=== PATIENT | female | born 1960 | race Caucasian/White ===

== ENCOUNTER → 2019-12-21 09:19 | Outpatient (BNVA) | payer BC, SELFPAY | PROVIDERS: Family Provider Family Medicine; PCP Family Medicine; Visit Provider Family Medicine | DX: E78.5 Hyperlipidemia, unspecified (principal); E55.9 Vitamin D deficiency, unspecified; Z12.31 Encounter for screening mammogram for malignant neoplasm of breast; Z01.419 Encounter for gynecological examination (general) (routine) without abnormal findings | CPT/HCPCS: 80053; 80061; 82306; 85025 ==

== ENCOUNTER 2020-05-10 08:39 | Outpatient (CLI) | payer BC, SELFPAY ==
--- NOTE | 2020-05-10 09:00 | MM_ITS ---
WS: [id number] Bilateral screening digital mammogram, 05/10/2020 Clinical Data: screening mammo Comparison: 05/08/2019, 04/21/2018, 04/04/2018, 03/15/2017, 03/14/2016, 03/09/2015, 03/02/2014, 05/02/20 13, 13/11/2012, 02/04/2012, 08/07/2011, 01/19/2011. Findings: The breast parenchymal pattern shows heterogeneous density No spiculated masses or clustered calcific ations are seen. There are no secondary signs of carcinoma. MM/[id number] Impression: 1. Negative bilateral mammogram unchanged. 2. Recommend annual screening mammograms. BIRADS: 1-Negative FOLLOW UP: 1 Year Follow-up The CAD bakery products checker was used.
== END 2020-05-10 08:40 | disposition home or self-care (01) ==
LOC: RADSHAW 08:42
PROVIDERS: Family Provider Family Medicine; PCP Family Medicine; Visit Provider Family Medicine
DX: Z12.31 Encounter for screening mammogram for malignant neoplasm of breast (principal)
CPT/HCPCS: 77067

== ENCOUNTER → 2020-09-12 09:27 | Outpatient (BNVA) | payer BC, SELFPAY | PROVIDERS: Family Provider Family Medicine; PCP Family Medicine; Visit Provider Family Medicine | DX: E78.5 Hyperlipidemia, unspecified (principal); F41.9 Anxiety disorder, unspecified; F32.9 Major depressive disorder, single episode, unspecified | CPT/HCPCS: 80053; 80061; 85025 ==

== ENCOUNTER → 2021-02-10 10:23 | Outpatient (BNVA) | payer BC, SELFPAY | PROVIDERS: Family Provider Family Medicine; PCP Family Medicine; Visit Provider Family Medicine | DX: E78.5 Hyperlipidemia, unspecified (principal); N63.20 Unspecified lump in the left breast, unspecified quadrant; F41.9 Anxiety disorder, unspecified | CPT/HCPCS: 80053; 80061; 85025 ==

== ENCOUNTER 2021-05-12 09:16 | Outpatient (CLI) | payer BC, SELFPAY ==
--- NOTE | 2021-05-12 09:24 | MM_ITS ---
WS: [id number] Bilateral diagnostic digital mammogram, 05/12/2021 Clinical Data: abnormal mammo Comparison: 05/10/2020, 05/08/2019, 04/21/2018, 04/04/2018, 03/15/2017, 03/14/2016, 03/09/2015, 014, 03/02/2013, 08/19/2012, 02/04/2012, 08/07/2011, 01/19/2011. Findings: The breast parenchymal pattern shows heterogeneous density. There is a marker in the inferior aspect of the left breast at 6:00 marking the location of pain perceived only on palpation. There are no clu stered calcifications or spiculated masses. There are no secondary signs of carcinoma. MM/[id number] Impression: 1. Negative bilateral mammograms unchanged. 2. No mass or calcifications noted at the 6:00 position of the inferior left br east. 3. Left breast ultrasound will be performed. BIRADS: 1-Negative FOLLOW UP: See Report The CAD tool checker was used.
--- NOTE | 2021-05-12 09:24 | US_ITS ---
WS: [id number] Left breast ultrasound, 05/12/2021 Clinical Data: abnormal mammo Comparison: Bilateral breast ultrasound, 08/19/2012. Findings: 3 cm from the nipple at the 6:00 position of left breast there are no cysts or masses. Only normal br east tissue is seen. US/US breast LT limited* [id number] Impression: 1. Negative left breast ultrasound. 2. Recommend annual screening mammograms and clinical evaluation of the left br east BIRADS: 1-Negative FOLLOW UP: See Report
== END 2021-05-12 09:17 | disposition home or self-care (01) ==
LOC: RADSHAW 09:21
PROVIDERS: PCP Family Medicine; Visit Provider Family Medicine
DX: R92.8 Other abnormal and inconclusive findings on diagnostic imaging of breast (principal)
CPT/HCPCS: 76642; 77066

== ENCOUNTER → 2021-11-29 09:49 | Outpatient (BNVA) | payer BC, SELFPAY | PROVIDERS: PCP Family Medicine; Visit Provider Family Medicine | DX: F41.9 Anxiety disorder, unspecified (principal); E78.5 Hyperlipidemia, unspecified; F32.9 Major depressive disorder, single episode, unspecified | CPT/HCPCS: 80053 ==

== ENCOUNTER 2022-02-02 22:30 | Emergency (ER) | payer BC, SELFPAY ==
[2022-02-02 22:34] VITALS: BP 175/103; PULSE 113; RESP 95; TEMP 36.6; O2SAT 95; BMI 23.6
--- NOTE | 2022-02-02 22:42 | ECG_ITS ---
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 Measurements Intervals [place] Rate: 114 P: 64 WI: 143 QRS: 73 QRSD: 82 T: 43 QT: 286 QTc: 394 Interpretive Statements SINUS TACHYCARDIA POSSIBLE LEFT ATRIAL ENLARGEMENT [-0.1mV P-WAVE IN V1/V2] POSSIBLE RIGHT VENTRICULAR CONDUCTION DELAY [RSR (QR) IN V1/V2] NONSPECIFIC ST & T-WAVE ABNORMALITY No previous ECG available for comparison Electronically Signed On 02-04-2022 13:22:34 CDT by Enoc Robles M.D. [email or web address] [id number] f
--- NOTE | 2022-02-03 00:22 | ECG_ITS ---
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 Measurements Intervals [place] Rate: 84 P: 56 MT: 153 QRS: 73 QRSD: 80 T: 64 QT: 366 QTc: 434 Interpretive Statements SINUS RHYTHM Compared to ECG 02/02/2022 22:43:19 Sinus tachycardia no longer present T-wave abnormality no longer present Electronically Signed On 02-04-2022 13:22:02 CDT by Enoc Robles M.D. [id number]
--- NOTE | 2022-02-03 00:22 | W.ED.GENADLT ---
HPI - General Adult General: Chief complaint: General Medical Stated complaint: med reaction Time Seen by Provider: 02/03/22 00:08 History of Present Illness: Patient is a 61-year-old female comes to the ED with reaction medication. Patient was seen by PCP earlier today and sent home with a prescription for an antibiotic and steroid. Patient is currently taking Bactrim and prednisone and she says she has never taken either of those medications before in the past. Tonight she went to lay down and felt very jittery and had trouble sleeping. Her extremities were shaking. Endorses a headache. Denies any chest pain, seizure activity, loss of consciousness, nausea or vomiting. Associated symptoms: Reports headache(s); Deny chest pain, dyspnea, nausea, rash, palpitations or vomiting Review of Systems Const: Reports: change in sleep pattern (Trouble sleeping); Denies: fever(s), chills or fatigue Eyes: Denies: change in vision or eye discomfort ENMT: Denies: throat pain, odynophagia, nasal discharge or nasal congestion Card: Denies: chest pain, palpitations, edema, swelling of feet/ankles, dyspnea on exertion or orthopnea Resp: Denies: dyspnea, productive cough or non-productive cough GI: Denies: abdominal pain, nausea, vomiting, diarrhea, constipation or hematochezia : Denies: flank pain, dysuria or hematuria Musc: Denies: neck pain, back pain or extremity swelling Skin/Breast: Denies: rash or new lesions Neuro: Reports: headache(s); Denies: numbness in extremities or weakness in extremities [facility] ED PFSH: Medical History Allergic rhinitis Anxiety and depression Hyperlipidemia, mild Iron deficiency Vitamin D deficiency Surgical History H/O lumpectomy Right breast - benign Family History Other CAD (coronary artery disease) Cancer Multiple sclerosis Social History Smoking and tobacco status: former smoker Quit status (tobacco): has quit using tobacco Year quit tobacco: 2014 Former quit date comment: 2 PPD FOR 30 YEARS Alcohol intake: never Physical Exam Const: COMMON NORMALS: no acute distress, patient oriented x3, healthy appearing and alert GENERAL APPEARANCE: cooperative and comfortable HENMT: COMMON NORMALS: normocephalic HEAD & SCALP: normocephalic MOUTH: Normal oral and palatal mucosa present THROAT: posterior oropharynx normal and uvula midline Neck/C-Spine: COMMON NORMALS: supple GENERAL: Yes normal visual inspection Resp: COMMON NORMALS: normal respiratory effort, No retractions, No use of accessory muscles and clear to auscultation bilaterally AUSCULTATION: clear to auscultation bilaterally Cardio: COMMON NORMALS: regular rate, regular rhythm, S1 normal heart sound present, S2 normal heart sound present, No gallops present (Cardio), No clicks present (Cardio), No murmurs present (Cardio) and Peripheral pulses 2+ throughout RATE: regular rate RHYTHM: regular rhythm HEART SOUNDS: S1 normal heart sound present and S2 normal heart sound present PERIPHERAL PULSES: Peripheral pulses 2+ throughout GI: COMMON NORMALS: Normal to inspection, nondistended, normoactive bowel sounds present, Soft to palpation, non-tender and no masses PALPATION: Yes Soft to palpation : COMMON NORMALS: Yes no CVA tenderness BLADDER/KIDNEY EXAM: Yes no CVA tenderness Back/Pelvis: COMMON NORMALS: no CVA tenderness Extremity: COMMON NORMALS: normal to inspection Neuro: COMMON NORMALS: patient oriented x3 SENSORIUM/ORIENTATION: Yes alert GAIT: Yes Normal gait present Skin: GENERAL SKIN EXAM: dry skin Course Vital Signs: Vital signs: Vital Signs Temperature 97.9 F 02/02/22 22:34 Pulse Rate 89 02/03/22 01:05 Respiratory Rate 95 H 02/02/22 22:34 Blood Pressure 148/98 02/03/22 01:05 Pulse Oximetry 98 02/03/22 01:05 Oxygen Delivery Me thod 02/02/22 22:34 [facility] - General Adult Medical Decision Making Patient is a 61-year-old female comes to the ED with reaction medication. Patient started taking prednisone today and tonight she felt anxious, shaky and had trouble sleeping. She was taking a steroid and antibiotic for acute sinusitis. Symptoms are likely side effect of prednisone. Denies any chest pain or shortness of breath. Vitals are stable. Exam of patient is benign and she appears in no acute distress or pain. EKG showed normal sinus rhythm with no ST segment elevation or depression seen. Patient was told to stop taking the prednisone and to continue taking her Bactrim. She was told if she still has symptoms after stopping her prednisone she can stop taking her Bactrim and take the cephalexin I am sending her home with. Follow-up with PCP in the next week for reevaluation. Return ED precautions given. Patient understood agree with plan. EKG Data EKG 1: EKG interpretation date: 02/03/22 Interpretation: Sinus rhythm, 84 bpm, no ST segment elevation or depression seen. Discharge Plan Discharge Patient Disposition: Home Clinical Impression: Medication side effect Condition: Stable Prescriptions: New cephalexin 500 mg capsule 500 mg PO Q6H 7 Days Qty: 28 0RF No Action mecobalamin (vitamin B12) 1,000 mcg tablet,disintegrating 1,000 mcg SUBLINGUAL DAILY ferrous gluconate [Fergon] 240 mg (27 mg iron) tablet 240 mg PO DAILY cholecalciferol (vitamin D3) 3,000 unit tablet 3,000 unit PO DAILY elderberry fruit 200 mg capsule PO zinc 50 mg tablet 50 mg PO DAILY omega-3 fatty acids [Fish Oil Concentrate] 1,000 mg capsule 1,000 mg PO DAILY sulfamethoxazole-trimethoprim [Bactrim DS] 800-160 mg tablet 1 tab PO BID Qty: 14 0RF Mucinex 1,200 mg tablet extended release 12hr 1,200 mg PO BID Qty: 14 0RF prednisone 20 mg tablet 40 mg PO ONCE Qty: 10 0RF Rx Instructions: Take 2 in AM with food alprazolam [Xanax] 0.25 mg tablet 0.25 mg PO TID PRN (Reason: anxiety) Qty: 10 0RF Zyrtec 10 mg capsule 10 mg PO DAILY Qty: 90 1RF atorvastatin 10 mg tablet 10 mg PO DAILY 90 Days Qty: 90 1RF Discharge Orders: Discharge ED (Routine); Ordered 02/03/22 Ordered By: Venkat Norris Referrals: Heaven Duggan DO [Primary Care Provider] - Discharge Diet: Regular Discharge Activity: Resume usual activity Activity Restrictions/Additional Instructions: Follow-up with medical provider as directed in the next 5 to 7 days for reevaluation. stop taking the prednisone due to the side effects. Continue taking your previously prescribed antibiotic and if you continue to have symptoms you can stop taking that and fill the prescription for the antibiotic I am sending home with you tonight. Return to the ER or your medical provider if condition worsens. Please read and understand discharge instructions. Thank you for choosing [facility] for your healthcare needs today. Please realize this is an emergency room and that we are providing you with a medical screening exam and this may not be complete and all inclusive of all the testing and or work up that you may need to determine your ailment or severity of your illness. It is very important that you follow up as instructed or that you return to the Emergency Department should you have concerns or if your condition changes or worsens in any way. 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
[2022-02-03] MEDS: ketorolac 30 mg/mL INJ IM (00:34)
[2022-02-03 01:05] VITALS: BP 148/98; PULSE 89; O2SAT 98
== END 2022-02-03 01:09 | disposition home or self-care (01) ==
PROVIDERS: Emergency Provider Physician Assistant; PCP Family Medicine
DX: T88.7XXA Unspecified adverse effect of drug or medicament, initial encounter (principal); T50.905A Adverse effect of unspecified drugs, medicaments and biological substances, initial encounter; E78.5 Hyperlipidemia, unspecified; Z87.891 Personal history of nicotine dependence
CPT/HCPCS: 93005; 96372; 99284; J1885

== ENCOUNTER → 2022-05-01 14:19 | Outpatient (BNVA) | payer BC, SELFPAY | PROVIDERS: PCP Family Medicine; Visit Provider Family Medicine | DX: Z01.419 Encounter for gynecological examination (general) (routine) without abnormal findings (principal); F41.9 Anxiety disorder, unspecified; F32.9 Major depressive disorder, single episode, unspecified | CPT/HCPCS: 88175 ==

== ENCOUNTER 2022-05-14 10:11 | Outpatient (CLI) | payer BC, SELFPAY ==
--- NOTE | 2022-05-14 10:21 | MM_ITS ---
WS: [id number] BILATERAL SCREENING DIGITAL TOMOSYNTHESIS MAMMOGRAM WITH CAD HISTORY: SCREENING COMPARISON: 05/12/2021, 05/10/2020, 05/08/2019 Bilateral CC and MLO views with tomosynthesis and synthetic mammography submitted. Computer aided det ection analyzed. Breast composition: There are scattered areas of fibroglandular density. No suspicious masses, microc alcifications or architectural distortion. Benign calcifications in each breast. MM/[place] [id number] IMPRESSION: BI-RADS: 2-Benign FOLLOW UP: 1 Year Follow-up
== END 2022-05-14 10:12 | disposition home or self-care (01) ==
PROVIDERS: PCP Family Medicine; Visit Provider Family Medicine
DX: Z12.31 Encounter for screening mammogram for malignant neoplasm of breast (principal)
CPT/HCPCS: 77063; 77067

== ENCOUNTER 2022-07-17 10:46 | Outpatient (CLI) | payer BC, SELFPAY ==
--- NOTE | 2022-07-17 11:00 | USCV_ITS ---
Shelly Shepherd Age: 62 Gender: F : 1960 Exam Date: 07/17/2022 11:31 Ordering Phys: Heaven Duggan DO Technologist: KIRBY [place] [facility] [place]ication: SYNCOPE BP: 117 / 68 HR: 83 Rhythm: Sinus Technical Quality: Adequate MEASUREMENTS (Male / Female) Normal Values 2D ECHO LVOT Diameter 2.0 cm LV Ejection Fraction MOD 2C 65.7 % LV Ejection Fraction 2C AL 68.0 % LA Diameter 2.1 cm LA Width 2.3 cm LA Height 3.7 cm RA Width 1.8 cm RA Height 3.5 cm Aorta at Sinotubular Diameter 2.1 cm IVC Diameter 1.2 cm M-MODE Aortic Annulus Diameter 2.7 cm LA Ao Ratio MM 0.7 MV E Point Septal Separation 0.3 cm DOPPLER AV Peak Velocity 126.0 cm/s LVOT Peak Velocity 96.0 cm/s AV Area Cont Eq vti 2.6 cm squared AV Area Cont Eq pk 2.5 cm squared MV Peak Velocity 84.0 cm/s MV Area PHT 3.5 cm squared Mitral E to A Ratio 0.6 MV E' Velocity 30.5 cm/s Mitral E to MV E' Ratio 4.7 Mitral E to LV E' Lateral Ratio 4.5 Mitral E to LV E' Septal Ratio 5.0 TR Peak Velocity 164.9 cm/s TR Peak Gradient 10.9 mmHg TR Mean Velocity 135.3 cm/s TR Mean Gradient 7.6 mmHg TR Velocity Time Integral 37.8 cm TV Peak E Velocity 43.0 cm/s Right Atrial Pressure 3.0 mmHg Pulmonary Artery Systolic Pressu 13.9 mmHg PV Peak Velocity 82.0 cm/s RV Acceleration Time 0.1 s RV Ejection Time 0.3 s RV AcT/ET 0.5 FINDINGS Left Ventricle Left ventricle is normal in size. LV systolic function is normal with EF of 55 to 60%. No regional wall motion abnormalities are seen. Grade 1 diastolic dysfunction. Right Ventricle Normal in size and function Right Atrium Normal in size Left Atrium Normal in size Mitral Valve Structurally normal mitral valve. Trace mitral regurgitation. Aortic Valve Structurally normal aortic valve. No significant stenosis or regurgitation. Tricuspid Valve Mild tricuspid regurgitation. Insufficient TR jet to calculate RVSP Pulmonic Valve Not well visualized Pericardium Normal Aorta Normal in size IVC Appears to be normal CONCLUSIONS LV systolic function is normal with EF of 55 to 60%. Grade 1 diastolic dysfunction Trace mitral regurgitation Mild tricupid regurgitation No comparison studies are available Enoc Robles MD (Electronically Signed) Final Date: 20 July 2022 23:31 S
--- NOTE | 2022-07-17 13:00 | USCV_ITS ---
Shelly Shepherd Age: 62 Gender: F : 1960 Exam Date: 07/17/2022 11:15 Ordering Phys: Heaven Duggan DO Technologist: KIRBY Exam Location: [facility] [place] Indication: SYNCOPE Risk Factors: Previous Vascular Surgery: Right Brachial BP: / Left Brachial BP: / Right Left Velocity (cm/s) Spectral Plaque Velocity (cm/s) Spectral Plaque Syst/Diast Broadening Syst/Diast Broadening 71.70/ 29.80 Prox CCA 76.90 / 24.60 69.50/ 28.70 Mid CCA 80.50 / 26.50 75.00/ 23.20 Distal CCA 63.80 / 22.30 53.60/ 20.20 Prox ICA 79.00 / 27.30 73.40/ 26.80 Mid ICA 74.30 / 26.90 71.20/ 24.50 Distal ICA 63.60 / 28.70 52.20 ECA 71.30 0.98 ICA/CCA 0.98 Antegrade Vertebral Antegrade 49.30/ 11.80 cm/s 65.10/ 29.80 cm/s Tri Subclavian Tri 66.50 84.90 CONCLUSIONS Right ICA stenosis <50%. Left ICA stenosis <50%. Normal antegrade Doppler flow noted in the right vertebral artery. Normal antegrade Doppler flow noted in the left vertebral artery. Saravanan Hernandez MD (Electronically Signed) Final Date: 17 July 2022 13:16 S
== END 2022-07-17 10:47 | disposition home or self-care (01) ==
LOC: RAD 11:00
PROVIDERS: PCP Family Medicine; Visit Provider Family Medicine
DX: R55 Syncope and collapse (principal)
CPT/HCPCS: 93306; 93880

== ENCOUNTER → 2022-07-27 07:52 | Outpatient (BNVA) | payer BC, SELFPAY | PROVIDERS: PCP Family Medicine; Visit Provider Family Medicine | DX: E78.5 Hyperlipidemia, unspecified (principal) | CPT/HCPCS: 80053; 80061; 85025 ==

== ENCOUNTER 2022-09-18 07:44 | Outpatient (CLI) | payer BC, SELFPAY ==
[2022-09-18 08:02] VITALS: BMI 23.2
--- NOTE | 2022-09-18 08:03 | NMCV_ITS ---
NM catalino perf SPECT r/s* [id number] Shelly Shepherd Age: 62 Gender: F : 1960 Exam Date: 09/18/2022 08:03 Ordering Phys: Heaven Duggan DO Technologist: NKECHI Astudillo Exam Location: [facility] Indications: SYNCOPE AND COLLAPSE STRESS TEST Please see separate stress test report in [facility] for full findings IMAGE PROTOCOL Rest/Stress 1 Exercise Day Radiopharmaceutical Dose (mCi) Administration Site Administered by Rest: Tc-99m 10.8 IV NKECHI Simmons Sestamibi Stress:Tc-99m 32.7 IV NKECHI Simmons [place] Rest: 18-Sep-2022 60 Discovery 630 Stress: 18-Sep-2022 30 Discovery 630 Radiopharmaceutical was injected at 87 % maximum heart rate. Images obtained in supine and prone position. SPECT RESULTS Technical Quality: Excellent Raw Data Analysis: Normal Image Corrections: No attenuation or motion correction applied Summed Stress Score: 0 Summed Rest Score: 0 Summed Difference Score: 0 PERFUSION FINDINGS Fairly uniform myocardial tracer uptake with no significant perfusion abnormalities FUNCTIONAL RESULTS (calculated via Gated SPECT) Stress Image LV EF (%): 88 Stress EDV (mL):32 TID: 0.81 Stress ESV (mL):4 FUNCTIONAL FINDINGS: Segmental wall motion analysis revealing no gross wall motion abnormalities IMPRESSIONS 1. Unremarkable Myocardial perfusion imaging 2. Normal LV ejection fraction of 88%. 3. LV wall motion analysis revealing no gross wall motion abnormalities. 4. Normal LV volume Low probability for coronary ischemia, based on the above findings Dr Marley Alston MD FACC (Electronically Signed) Final Date: 18 September 2022 13:11 S
--- NOTE | 2022-09-18 08:03 | ECG_ITS ---
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 Interpretive Statements NAME OF STUDY: EXERCISE SESTAMIBI STRESS TEST INDICATION: Syncope, PROCEDURE: At the baseline, the patient's blood pressure was 145/94 with a heart rate of 92. The baseline electrocardiogram showed normal sinus rhythm with nonspecific T wave changes. The patient exercised for 4 minutes and 27 seconds on a standard Jonathan protocol. Patient attained a maximum heart rate of 145 beats per minute(92% of the maximum predicted heart rate) with a blood pressure at the peak exercise of 178/117 mm Hg. The EKG at the peak exercise revealed no significant changes. Patient did not have any chest pain or any significant cardiac arrhythmias with the exercise During the recovery phase, there were no new changes. Blood pressure at the end of the recovery phase was 134/97 mm Hg with a heart rate of 96 per minute. CONCLUSION: 1. Normal EKG response to treadmill exercise 2. No exercise-induced chest pain or cardiac arrhythmia 3. Impaired exercise tolerance, attained a maximum of 7.0 METs Electronically Signed On 09-23-2022 22:44:44 CDT by Marley Alston M.D. [id number]
[2022-09-18 10:17] VITALS: BP 134/97; PULSE 87
== END 2022-09-18 07:45 | disposition home or self-care (01) ==
LOC: CDL 07:46
PROVIDERS: PCP Family Medicine; Visit Provider Family Medicine
DX: R55 Syncope and collapse (principal)
CPT/HCPCS: 36415; 78452; 93017; A9500

== ENCOUNTER → 2023-01-25 08:21 | Outpatient (BNVA) | payer BC, SELFPAY | PROVIDERS: PCP Family Medicine; Visit Provider Family Medicine | DX: E78.5 Hyperlipidemia, unspecified (principal); F41.9 Anxiety disorder, unspecified; F32.9 Major depressive disorder, single episode, unspecified | CPT/HCPCS: 80053 ==

== ENCOUNTER 2023-02-22 09:50 | Outpatient (CLI) | payer BC, SELFPAY ==
--- NOTE | 2023-02-22 10:15 | MR_ITS ---
WS: [id number] MRA HEAD TECHNIQUE: Axial 3-D TOF images obtained with axial images and axial, sagittal, and coronal 2-D refor matted images. CLINICAL INFORMATION: family history of brain aneurysm COMPARISON: MRI 2016 FINDINGS: Dominant distal LEFT vertebral artery. RIGHT vertebral artery mainly ends in PICA. Basilar artery is patent. Normal vascularity to the INTERMISSION COORDINATOR territory bilaterally. Both ICAs are patent at the skull base. Normal vascularity to the EDWARD and MCA territories bilaterally . Patent anterior communicating artery. No evidence of proximal flow-limiting stenosis or aneurysm. S mall LEFT A1 segment. IMPRESSION: 1. No evidence of proximal flow-limiting stenosis or aneurysm. 2. Small LEFT A1 segment. 3. Mild intracranial atheromatous disease. 4. Otherwise unremarkable intracranial MRA.
== END 2023-02-22 09:51 | disposition home or self-care (01) ==
PROVIDERS: PCP Family Medicine; Visit Provider Family Medicine
DX: Z82.49 Family history of ischemic heart disease and other diseases of the circulatory system (principal)
CPT/HCPCS: 70544

== ENCOUNTER 2023-05-15 08:07 | Outpatient (CLI) | payer BC, SELFPAY ==
--- NOTE | 2023-05-15 08:46 | MM_ITS ---
WS: [id number] BILATERAL SCREENING DIGITAL TOMOSYNTHESIS MAMMOGRAM WITH CAD HISTORY: screening mammogram COMPARISON: 05/14/2022 and 05/12/2021 Bilateral CC and MLO views with tomosynthesis and synthetic mammography submitted. Computer aided det ection analyzed. Breast composition: There are scattered areas of fibroglandular density. No suspicious masses, microc alcifications or architectural distortion. Benign calcification LEFT breast. IMPRESSION: MM/[place] [id number] BI-RADS: 2-Benign FOLLOW UP: 1 Year Follow-up
== END 2023-05-15 08:08 | disposition home or self-care (01) ==
LOC: RAD 08:08
PROVIDERS: PCP Family Medicine; Visit Provider Family Medicine
DX: Z12.31 Encounter for screening mammogram for malignant neoplasm of breast (principal)
CPT/HCPCS: 77063; 77067

== ENCOUNTER → 2023-08-12 09:43 | Outpatient (BNVA) | payer BC, SELFPAY | PROVIDERS: PCP Family Medicine; Visit Provider Family Medicine | DX: E78.5 Hyperlipidemia, unspecified (principal); Z13.6 Encounter for screening for cardiovascular disorders; E55.9 Vitamin D deficiency, unspecified; F41.9 Anxiety disorder, unspecified; F32.9 Major depressive disorder, single episode, unspecified; M26.622 Arthralgia of left temporomandibular joint | CPT/HCPCS: 80053; 80061; 82306; 85025 ==

== ENCOUNTER → 2024-02-26 09:24 | Outpatient (BNVA) | payer BC, SELFPAY | PROVIDERS: PCP Family Medicine; Visit Provider Family Medicine | DX: E55.9 Vitamin D deficiency, unspecified (principal) | CPT/HCPCS: 82306; 82607; 85025 ==

== ENCOUNTER 2024-06-01 09:05 | Outpatient (CLI) | payer MEDICARE, SELFPAY ==
--- NOTE | 2024-06-01 09:30 | MM_ITS ---
WS: [id number] BILATERAL SCREENING DIGITAL TOMOSYNTHESIS MAMMOGRAM WITH CAD HISTORY: screening COMPARISON: 05/15/2023, 05/14/2022, 05/08/2019 Bilateral CC and MLO views with tomosynthesis and synthetic mammography submitted. Computer aided det ection analyzed. Breast composition: There are scattered areas of fibroglandular density. No suspicious masses, microc alcifications or architectural distortion. There are a few scattered calcifications in the LEFT breas t. Long-term stable 6 mm mass in the posterior medial LEFT breast. MM/MM scr BI tomosynthesis [id number] IMPRESSION: BI-RADS: 2 - Benign. FOLLOW UP: 1 Year Follow-up
== END 2024-06-01 09:06 | disposition home or self-care (01) ==
PROVIDERS: PCP Family Medicine; Visit Provider Family Medicine
DX: Z12.31 Encounter for screening mammogram for malignant neoplasm of breast (principal); R92.323 Mammographic fibroglandular density, bilateral breasts; R92.1 Mammographic calcification found on diagnostic imaging of breast; N63.20 Unspecified lump in the left breast, unspecified quadrant
CPT/HCPCS: 77063; 77067

== ENCOUNTER → 2024-08-24 09:10 | Outpatient (BNVA) | payer MEDICARE, SELFPAY | PROVIDERS: PCP Family Medicine; Visit Provider Family Medicine | DX: E67.8 Other specified hyperalimentation (principal); E78.5 Hyperlipidemia, unspecified | CPT/HCPCS: 80053; 80061; 82607 ==

== ENCOUNTER → 2025-03-08 09:27 | Outpatient (BNVA) | payer MEDICARE, SELFPAY | PROVIDERS: PCP Family Medicine; Visit Provider Family Medicine | DX: E78.5 Hyperlipidemia, unspecified (principal) | CPT/HCPCS: 80053; 85025 ==

== ENCOUNTER 2025-03-27 06:30 | Outpatient (RCR) | payer MEDICARE, SELFPAY | END 2025-04-25 23:59 | disposition home or self-care (01) | LOC: SPT 06:30 | PROVIDERS: Visit Provider Family Medicine | DX: M62.81 Muscle weakness (generalized) (principal); R26.81 Unsteadiness on feet | CPT/HCPCS: 97110 ==

== ENCOUNTER 2025-04-26 06:30 | Outpatient (RCR) | payer MEDICARE, SELFPAY | END 2025-05-12 09:15 | disposition home or self-care (01) | LOC: SPT 06:30 | PROVIDERS: Visit Provider Family Medicine | DX: R26.81 Unsteadiness on feet (principal) | CPT/HCPCS: 97110 ==